=== PATIENT | female | born 1995 | race African-American/Black ===

== ENCOUNTER → 2019-11-19 | Outpatient (CLI) | payer OTHER ==
[2019-11-19 10:59] LABS: Basophils # (auto) 0.1 10 ^3/uL (0-0.2); Basophils % (auto) 0.7 % (0.0-2.0); Eosinophils # (auto) 0.2 10 ^3/uL (0-0.8); Eosinophils % (auto) 2.2 % (0.0-7.0); Hematocrit 40.7 % (36.0-46.0); Lymphocytes # (auto) 2.2 10 ^3/uL (0.4-5.4); Lymphocytes % (auto) 27.6 % (10.0-50.0); Mean Corpuscular Hgb Conc. 34.3 g/dL (32.0-36.0); Mean Corpuscular Volume 93.2 fL (80.0-100.0); Monocytes # (auto) 0.7 10 ^3/uL (0-1.3); Monocytes % (auto) 8.6 % (0.0-12.0); Neutrophils # (auto) 4.8 10 ^3/uL (1.6-8.6); Neutrophils % (auto) 60.9 % (37.0-80.0); Nucleated Red Blood Cells % 0.1 %; Platelet Count (auto) 264 10^3/uL (140-450); Red Blood Cells 4.37 10^6/uL (4.0-5.20); Red Cell Distribution Width 13.3 % (11.8-14.3); White Blood Cell 7.9 10^3/uL (4.4-10.8)
[2019-11-19 11:27] LABS: Amphetamine Screen, Urine NEGATIVE (NEGATIVE); Barbiturate Scree,Urine NEGATIVE (NEGATIVE); Benzodiazephine Screen, Urine NEGATIVE (NEGATIVE); Cannabinoid Screen, Urine NEGATIVE (NEGATIVE); Cocaine Screen, Urine NEGATIVE (NEGATIVE); Opiate Scree,Urine NEGATIVE (NEGATIVE); Phencyclidine Screen, Urine NEGATIVE (NEGATIVE)
[2019-11-20 04:06] LABS: RPR Non Reactive (Non Reactive)
== END | disposition home or self-care (01) ==
LOC: LAB 10:35
PROVIDERS: ATTEND Obstetrics & Gynecology
DX: Z34.80 Encounter for supervision of other normal pregnancy, unspecified trimester (principal); Z31.430 Encounter of female for testing for genetic disease carrier status for procreative management; Z72.51 High risk heterosexual behavior
CPT/HCPCS: 36415; 80307; 83036; 84112; 84144; 84702; 85025; 86592; 86703; 86762; 86850; 86900; 86901; 87086; 87340

== ENCOUNTER → 2019-12-25 | Outpatient (CLI) | payer OTHER | END | disposition home or self-care (01) | LOC: LAB 10:00 | PROVIDERS: ATTEND Obstetrics & Gynecology | DX: Z31.430 Encounter of female for testing for genetic disease carrier status for procreative management (principal); Z20.2 Contact with and (suspected) exposure to infections with a predominantly sexual mode of transmission; Z36.0 Encounter for antenatal screening for chromosomal anomalies; Z3A.16 16 weeks gestation of pregnancy | CPT/HCPCS: 81220 ==

== ENCOUNTER 2020-04-28 15:45 | Observation (INO) | payer OTHER ==
[~2020-04-28] VITALS: Ht 182.9 cm; Wt 93.0 kg
[2020-04-28] MEDS ORDERED: BETAMETHASONE ACET (6MG/ML) 5ML VIAL IM SCH (17:15)
[2020-04-28] MEDS: TERBUTALINE SULFATE 1 MG/ML 1ML VIAL SC SCH ×2 (17:32→18:31)
[2020-04-28 18:26] LABS: Basophils # (auto) 0 10 ^3/uL (0-0.2); Basophils % (auto) 0.3 % (0.0-2.0); Eosinophils # (auto) 0.1 10 ^3/uL (0-0.8); Eosinophils % (auto) 0.5 % (0.0-7.0); Hematocrit 34.5 % (36.0-46.0); Hemoglobin 11.6 g/dL (12.2-16.2); Lymphocytes # (auto) 2.6 10 ^3/uL (0.4-5.4); Lymphocytes % (auto) 26.9 % (10.0-50.0); Mean Corpuscular Hemoglobin 29.1 pg (28.0-32.0); Mean Corpuscular Hgb Conc. 33.5 g/dL (32.0-36.0); Mean Corpuscular Volume 86.6 fL (80.0-100.0); Monocytes % (auto) 10.1 % (0.0-12.0); Neutrophils # (auto) 6.1 10 ^3/uL (1.6-8.6); Neutrophils % (auto) 62.2 % (37.0-80.0); Platelet Count (auto) 226 10^3/uL (140-450); Red Blood Cells 3.98 10^6/uL (4.0-5.20); Red Cell Distribution Width 14.8 % (11.8-14.3); White Blood Cell 9.7 10^3/uL (4.4-10.8)
[2020-04-28 18:37] LABS: Urine Bacteria FEW /hpf (None Seen); Urine Blood Negative /uL (Negative); Urine Mucus FEW (None Seen); Urine Specific Gravity 1.032 (1.001-1.035); Urine WBC 1 /hpf (0 - 5)
[2020-04-28 18:38] LABS: Albumin 2.9 g/dL (3.4-5.0); Calcium 8.3 mg/dL (8.5-10.1); Potassium 3.3 mmol/L (3.5-5.1); Uric Acid 3.6 mg/dL (2.6-6.0)
[2020-04-28 18:40] LABS: INR 0.98 (0.9-1.15); Partial Thromboplastin Time 28.9 sec (23.0-31.2)
[2020-04-28 18:42] LABS: BUN/Creatinine Ratio 11.6; Bilirubin, Total 0.3 mg/dL (0.2-1.0); Total Protein 7.4 g/dL (6.4-8.2)
[2020-04-28 18:46] LABS: Protein, Urine 32.8 mg/dL (0.0-11.9)
[2020-04-28] MEDS ORDERED: NIFEdipine 10 MG CAP PO ONE (19:15)
[2020-04-29] MEDS ORDERED: NIF10C PO (17:51)
[2020-04-29] MEDS ORDERED: PREN-96 PO (17:51)
== END 2020-04-28 20:16 | disposition home or self-care (01) ==
LOC: LDRP 15:45
PROVIDERS: ADMIT Specialist; ATTEND Specialist
DX: O13.3 Gestational [pregnancy-induced] hypertension without significant proteinuria, third trimester (principal); Z3A.34 34 weeks gestation of pregnancy
CPT/HCPCS: 36415; 59025; 80053; 81001; 81002; 82570; 84156; 84550; 85025; 85610; 85730; 96372; G0378; J0702; J3105

== ENCOUNTER → 2020-04-28 | Outpatient (CLI) | payer OTHER ==
[~2020-04-28] MED LIST: NIF10C PO; PREN-96 PO
== END | disposition home or self-care (01) ==
LOC: LAB 15:24
PROVIDERS: ATTEND Obstetrics & Gynecology
DX: Z20.2 Contact with and (suspected) exposure to infections with a predominantly sexual mode of transmission (principal)
CPT/HCPCS: 86695; 86696

== ENCOUNTER 2020-04-29 16:16 | Observation (INO) | payer OTHER ==
[2020-04-29] MEDS ORDERED: BETAMETHASONE ACET (6MG/ML) 5ML VIAL IM ONE (16:45)
[2020-04-29] MEDS ORDERED: NIF10C PO (17:51)
[2020-04-29] MEDS ORDERED: PREN-96 PO (17:51)
== END 2020-04-29 17:45 | disposition home or self-care (01) ==
LOC: LDRP 16:16
PROVIDERS: ADMIT Specialist; ATTEND Specialist
DX: O13.3 Gestational [pregnancy-induced] hypertension without significant proteinuria, third trimester (principal); Z3A.34 34 weeks gestation of pregnancy
CPT/HCPCS: 59025; 81002; 96372; G0378; J0702

== ENCOUNTER 2020-05-02 11:52 | Observation (INO) | payer OTHER ==
[~2020-05-02] VITALS: Ht 182.9 cm; Wt 93.0 kg
[2020-05-02 13:44] LABS: Protein, Urine 17.8 mg/dL (0.0-11.9)
[2020-05-02 15:08] LABS: Albumin 2.9 g/dL (3.4-5.0); Potassium 3.7 mmol/L (3.5-5.1)
[2020-05-02 15:11] LABS: BUN/Creatinine Ratio 14.3; Bilirubin, Total 0.3 mg/dL (0.2-1.0); Total Protein 7.5 g/dL (6.4-8.2)
[2020-05-02 15:14] LABS: 24 Hr. Total Protein, Urine 391.6 mg/24 Hr (<149.1)
[2020-05-02 15:27] LABS: Creatinine Clearance, Urine 184.39 mL/min (75-115)
== END 2020-05-02 15:43 | disposition home or self-care (01) ==
LOC: LDRP 11:52
PROVIDERS: ADMIT Specialist; ATTEND Specialist
DX: O13.3 Gestational [pregnancy-induced] hypertension without significant proteinuria, third trimester (principal); Z3A.35 35 weeks gestation of pregnancy
CPT/HCPCS: 36415; 59025; 80053; 81002; 82575; 84156; G0378

== ENCOUNTER 2020-05-05 19:02 | Observation (INO) | payer OTHER ==
[~2020-05-05] VITALS: Ht 182.9 cm; Wt 93.0 kg
== END 2020-05-05 20:43 | disposition home or self-care (01) ==
LOC: LDRP 19:02
PROVIDERS: ADMIT Obstetrics & Gynecology; ATTEND Obstetrics & Gynecology
DX: O13.3 Gestational [pregnancy-induced] hypertension without significant proteinuria, third trimester (principal); Z3A.35 35 weeks gestation of pregnancy
CPT/HCPCS: 59025; 76818; 81002; G0378

== ENCOUNTER 2020-05-08 16:00 | Observation (INO) | payer OTHER | END 2020-05-08 17:24 | disposition home or self-care (01) | LOC: LDRP 16:00 | PROVIDERS: ADMIT Obstetrics & Gynecology; ATTEND Obstetrics & Gynecology | DX: O13.3 Gestational [pregnancy-induced] hypertension without significant proteinuria, third trimester (principal); Z3A.35 35 weeks gestation of pregnancy | CPT/HCPCS: 59025; 76818; 81002; G0378 ==

== ENCOUNTER 2020-05-12 18:52 | Observation (INO) | payer OTHER ==
[~2020-05-12] VITALS: Ht 30.5 cm; Wt 0.5 kg
[2020-05-12 20:19] LABS: Basophils # (auto) 0 10 ^3/uL (0-0.2); Basophils % (auto) 0.2 % (0.0-2.0); Eosinophils # (auto) 0.1 10 ^3/uL (0-0.8); Eosinophils % (auto) 0.7 % (0.0-7.0); Hematocrit 34.9 % (36.0-46.0); Hemoglobin 11.4 g/dL (12.2-16.2); Lymphocytes # (auto) 2.6 10 ^3/uL (0.4-5.4); Mean Corpuscular Hgb Conc. 32.7 g/dL (32.0-36.0); Mean Corpuscular Volume 85.5 fL (80.0-100.0); Monocytes # (auto) 1.3 10 ^3/uL (0-1.3); Monocytes % (auto) 11.8 % (0.0-12.0); Neutrophils # (auto) 7.1 10 ^3/uL (1.6-8.6); Neutrophils % (auto) 64.3 % (37.0-80.0); Nucleated Red Blood Cells % 0.1 %; Platelet Count (auto) 220 10^3/uL (140-450); Red Blood Cells 4.08 10^6/uL (4.0-5.20); Red Cell Distribution Width 15.1 % (11.8-14.3); White Blood Cell 11.1 10^3/uL (4.4-10.8)
[2020-05-12 20:26] LABS: Albumin 2.8 g/dL (3.4-5.0); Calcium 8.4 mg/dL (8.5-10.1); Potassium 4.8 mmol/L (3.5-5.1)
[2020-05-12 20:30] LABS: BUN/Creatinine Ratio 15.9; Bilirubin, Total 0.3 mg/dL (0.2-1.0); Total Protein 7.1 g/dL (6.4-8.2); Uric Acid 3.5 mg/dL (2.6-6.0)
[2020-05-12 20:35] LABS: INR 0.92 (0.9-1.15); Partial Thromboplastin Time 29.9 sec (23.0-31.2)
[2020-05-12] MEDS ORDERED: LABETALOL HCL 200 MG TAB PO ONE (20:45)
== END 2020-05-12 21:08 | disposition left against medical advice (07) ==
LOC: LDRP 18:52
PROVIDERS: ADMIT Obstetrics & Gynecology; ATTEND Obstetrics & Gynecology
DX: O13.3 Gestational [pregnancy-induced] hypertension without significant proteinuria, third trimester (principal); Z3A.36 36 weeks gestation of pregnancy
CPT/HCPCS: 59025; 76818; 80053; 81002; 84550; 85610; 85730; G0378

== ENCOUNTER 2020-05-16 19:02 | Observation (INO) | payer OTHER ==
[~2020-05-16] VITALS: Ht 182.9 cm; Wt 95.3 kg
[2020-05-16 20:34] LABS: 24 Hr. Total Protein, Urine 218.5 mg/24 Hr (<149.1)
== END 2020-05-16 21:46 | disposition home or self-care (01) ==
LOC: LDRP 19:02
PROVIDERS: ADMIT Obstetrics & Gynecology; ATTEND Obstetrics & Gynecology
DX: O13.3 Gestational [pregnancy-induced] hypertension without significant proteinuria, third trimester (principal); Z3A.37 37 weeks gestation of pregnancy
CPT/HCPCS: 59025; 76818; 81002; 82570; 84156; G0378

== ENCOUNTER 2020-05-18 14:18 | Observation (INO) | payer OTHER ==
[~2020-05-18] VITALS: Ht 193 cm; Wt 93.4 kg
--- NOTE | 2020-05-18 15:50 | NUR ---
UA collected before discharge. UA results within normal limits. Protein negative, ketones neg, glucose neg, pH 7 specific gravity 1.010, nitrates neg, leuk negative.
[2020-05-18] MEDS ORDERED: LABETALOL HCL 200 MG TAB PO ONE (16:00)
[2020-05-18] MEDS ORDERED: LABETALOL HCL 200 MG TAB ONE (16:02)
== END 2020-05-18 17:04 | disposition home or self-care (01) ==
LOC: LDRP 14:18
PROVIDERS: ADMIT Obstetrics & Gynecology; ATTEND Obstetrics & Gynecology
DX: O14.93 Unspecified pre-eclampsia, third trimester (principal); Z3A.37 37 weeks gestation of pregnancy
CPT/HCPCS: 59025; 76818; 81002; G0378

== ENCOUNTER 2020-05-21 19:31 | Observation (INO) | payer OTHER ==
[2020-05-21] MEDS ORDERED: LABETALOL HCL 200 MG TAB PO ONE (20:15)
[2020-05-21] MEDS ORDERED: LABE200T6 GT (23:14)
[2020-05-21] MEDS ORDERED: ACYC1CAP23 PO (23:14)
== END 2020-05-21 21:15 | disposition home or self-care (01) ==
LOC: LDRP 19:31
PROVIDERS: ADMIT Specialist; ATTEND Specialist
DX: O13.3 Gestational [pregnancy-induced] hypertension without significant proteinuria, third trimester (principal); O14.90 Unspecified pre-eclampsia, unspecified trimester; Z3A.37 37 weeks gestation of pregnancy
CPT/HCPCS: 59025; 76818; 81002; G0378

== ENCOUNTER 2020-05-25 19:10 | Observation (INO) | payer OTHER ==
[~2020-05-25] VITALS: Ht 182.9 cm; Wt 95.3 kg
[~2020-05-25 19:10] MED LIST changes: +ACYC1CAP23 PO; +LABE200T6 GT; -NIF10C PO
[2020-05-25 22:05] LABS: 24 Hr. Total Protein, Urine 358.5 mg/24 Hr (<149.1); Protein, Urine 23.9 mg/dL (0.0-11.9)
[2020-05-25 22:09] LABS: Protein, Urine 24.1 mg/dL (0.0-11.9)
== END 2020-05-25 21:45 | disposition home or self-care (01) ==
LOC: LDRP 19:10
PROVIDERS: ADMIT Obstetrics & Gynecology; ATTEND Obstetrics & Gynecology
DX: O14.90 Unspecified pre-eclampsia, unspecified trimester (principal); Z3A.38 38 weeks gestation of pregnancy
CPT/HCPCS: 59025; 76818; 81002; 82570; 84156; G0378

== ENCOUNTER 2020-05-28 19:36 | Observation (INO) | payer OTHER | END 2020-05-28 21:14 | disposition home or self-care (01) | LOC: LDRP 19:36 → UNDOADMOB 19:36 → UNDODISOB 21:14 | PROVIDERS: ADMIT Specialist; ATTEND Specialist | DX: O13.3 Gestational [pregnancy-induced] hypertension without significant proteinuria, third trimester (principal); Z20.828 Contact with and (suspected) exposure to other viral communicable diseases; Z3A.38 38 weeks gestation of pregnancy | CPT/HCPCS: 59025; 76818; 81002; G0378; U0003 ==

== ENCOUNTER 2020-05-31 19:27 | Inpatient (IN) | payer OTHER ==
[~2020-05-31] VITALS: Ht 182.9 cm; Wt 95.7 kg
[2020-05-31] MEDS ORDERED: LIDOCAINE 2%HCL (LOCAL ANESTH.) INJ 20ML MDV IJ ONE (21:00)
[2020-05-31] MEDS ORDERED: WITCH HAZEL-GLYCERIN PAD TOP PRN (21:00)
[2020-05-31] MEDS ORDERED: PROMETHAZINE HCL 25 MG/ML 1ML IM PRN (21:00)
[2020-05-31] MEDS ORDERED: DERMOPLAST 60ML BOTTLE TOP PRN (21:00)
[2020-05-31] MEDS ORDERED: PHISODERM TOP SOLN 240ML BTL TOP PRN (21:00)
[2020-05-31] MEDS ORDERED: PENICILLIN G POT 5MIL/D5 50ML 50 ML IV ONE (21:30)
[2020-05-31 21:35] LABS: Basophils # (auto) 0 10 ^3/uL (0-0.2); Basophils % (auto) 0.4 % (0.0-2.0); Eosinophils # (auto) 0.1 10 ^3/uL (0-0.8); Eosinophils % (auto) 0.5 % (0.0-7.0); Hemoglobin 10.6 g/dL (12.2-16.2); Lymphocytes # (auto) 2.3 10 ^3/uL (0.4-5.4); Lymphocytes % (auto) 18.8 % (10.0-50.0); Mean Corpuscular Hgb Conc. 32.2 g/dL (32.0-36.0); Monocytes # (auto) 1.4 10 ^3/uL (0-1.3); Monocytes % (auto) 11.9 % (0.0-12.0); Neutrophils # (auto) 8.2 10 ^3/uL (1.6-8.6); Neutrophils % (auto) 68.4 % (37.0-80.0); Platelet Count (auto) 249 10^3/uL (140-450); Red Blood Cells 3.93 10^6/uL (4.0-5.20); Red Cell Distribution Width 16.2 % (11.8-14.3)
[2020-05-31 21:38] LABS: Urine Bacteria FEW /hpf (None Seen); Urine Blood Negative /uL (Negative); Urine Mucus FEW (None Seen); Urine Specific Gravity 1.008 (1.001-1.035); Urine WBC <1 /hpf (0 - 5)
[2020-05-31 21:49] LABS: INR 0.92 (0.9-1.15); Partial Thromboplastin Time 29.9 sec (23.0-31.2)
[2020-05-31] MEDS: LACTATED RINGER'S 1,000 ML IV SCH (21:50)
[2020-05-31] MEDS: miSOPROStol 50 MCG per PRE-CUT 1/2 TAB PO PRN (21:54)
[2020-05-31 22:02] LABS: Alcohol, Urine < 3.0 mg/dL (0-10); Amphetamine Screen, Urine NEGATIVE (NEGATIVE); Barbiturate Scree,Urine NEGATIVE (NEGATIVE); Benzodiazephine Screen, Urine NEGATIVE (NEGATIVE); Cannabinoid Screen, Urine NEGATIVE (NEGATIVE); Cocaine Screen, Urine NEGATIVE (NEGATIVE); Opiate Scree,Urine NEGATIVE (NEGATIVE); Phencyclidine Screen, Urine NEGATIVE (NEGATIVE)
[2020-05-31 22:22] LABS: Albumin 2.7 g/dL (3.4-5.0); Calcium 8.5 mg/dL (8.5-10.1); Potassium 3.8 mmol/L (3.5-5.1)
[2020-05-31 22:24] LABS: BUN/Creatinine Ratio 15.1; Bilirubin, Total 0.2 mg/dL (0.2-1.0)
[2020-06-01] MEDS: miSOPROStol 50 MCG per PRE-CUT 1/2 TAB PO PRN ×3 (02:00→12:28)
[2020-06-01] MEDS ORDERED: PENICILLIN G POT 5MILLION UNIT VIAL ONE (02:03)
[2020-06-01] MEDS: PENICILLIN G POTASSIUM 2,500,000 UNITS in D5W 5% 50 ML IV SCH ×5 (02:11→17:28)
[2020-06-01] MEDS: LACTATED RINGER'S 1,000 ML IV SCH ×3 (05:54→23:00)
[2020-06-01] MEDS: LABETALOL HCL 200 MG TAB PO SCH ×3 (07:41→21:43)
[2020-06-01] MEDS ORDERED: LACT. RINGERS/OXYTOCIN 20UNITS 1,000 ML IV PRN (08:00)
--- NOTE | 2020-06-01 10:41 | NUR ---
SS consult regarding surrogate . Pt is an alert and oriented female that reside with her 5 yo son. Pt states her mother and boyfriend are available for assistance and help upon discharge. Pt states that she agrees with the surrogate adoption and has been working with an agency lead generation representative/oxygen equipment preparer and the parents throughout this process. Pt states the parents are still in [place] due to the mother not obtaining her passport in time. Agency and parents have arranged for 2 nannies/caregivers to have baby released to upon discharge and care for child until the parents arrive. Agency paperwork from Court reviewed and appears in order. POA from parents assigning the 2 nannies authority over the baby for discharge reviewed as well. Nannies are not present at this time but upon arrival will need to provide identification to complete process for discharging baby. No further SS concerns/ needs at this time.
[2020-06-01] MEDS ORDERED: LACT. RINGERS/OXYTOCIN 20UNITS 1,000 ML IV SCH (17:00)
[2020-06-02] MEDS: BUTORPHANOL TARTRATE 2 MG/1 ML VIAL IV PRN ×2 (00:52→04:04)
[2020-06-02] MEDS: PENICILLIN G POTASSIUM 2,500,000 UNITS in D5W 5% 50 ML IV SCH ×2 (01:52→05:46)
[2020-06-02 05:06] LABS: RPR Non Reactive (Non Reactive)
[2020-06-02] MEDS ORDERED: LIDOCAINE 2%HCL (LOCAL ANESTH.) INJ 20ML MDV ONE (06:19)
[2020-06-02] MEDS ORDERED: IBUPROFEN 600 MG TAB PO PRN (08:15)
[2020-06-02] MEDS: ACETAMINOPHEN 325 MG TAB PO PRN ×2 (09:05→17:48)
[2020-06-02 09:10] VITALS: BP 117/77
--- NOTE | 2020-06-02 09:10 | NUR ---
Ambulation: Patient OOB with standby assistance by RN. Patient ambulated to bathroom with steady gait. Patient able to void 500ml without difficulty. [facility]icare teaching provided with returned demonstration by patient. Clean gown provided and bed linen changed. Patient ambulated back to bed with steady gait and no distress noted.
[2020-06-02] MEDS: LABETALOL HCL 200 MG TAB PO SCH (09:33)
--- NOTE | 2020-06-02 10:25 | NUR ---
report received from chuck negrete rn
[2020-06-02 10:30] VITALS: BP 93/54
[2020-06-02 15:47] VITALS: BP 95/50
--- NOTE | 2020-06-02 16:36 | NUR ---
CALLED DR. TREJO AND READ BLOOD PRESSURES TO HIM . PER DR. TREJO HOLD MEDICATION LABETALOL. ORDERS CARRIED OUT.
[2020-06-02 18:55] VITALS: BP 111/75
[2020-06-02 22:55] VITALS: BP 126/79
[2020-06-03 03:30] VITALS: BP 109/75
[2020-06-03] MEDS: ACETAMINOPHEN 325 MG TAB PO PRN (04:24)
--- NOTE | 2020-06-03 04:25 | NUR ---
IV removal IV DC'd with sterile technique, catheter fully intact. Pressure dressing applied to site. Patient tolerated procedure well.
[2020-06-03 06:24] VITALS: BP 115/70
[2020-06-03 06:31] VITALS: BP 115/70
[2020-06-03 06:59] VITALS: BP 115/70
--- NOTE | 2020-06-03 07:10 | NUR ---
Discharge: Discharge instructions given as ordered. Pt encouraged to follow up with [facility] as instructed. All questions and concerns addressed. Patient verbalized understanding. Medication reconciliation completed and copy given to patient.
--- NOTE | 2020-06-03 09:53 | NUR ---
Discharge: Patient taken to vehicle ambulatory with all personal belongings, accompanied by staff and family member. No distress noted at time of departure, no adverse changes in status since initial assessment.
== END 2020-06-03 09:53 | disposition home or self-care (01) | DRG 807 ==
LOC: LDRP 19:27
PROVIDERS: ADMIT Obstetrics & Gynecology; ATTEND Obstetrics & Gynecology
PROC: 10E0XZZ Delivery of Products of Conception, External Approach (ICD-10-PCS; principal; 2020-06-02)
PROC: 3E0P7VZ Introduction of Hormone into Female Reproductive, Via Natural or Artificial Opening (ICD-10-PCS; 2020-06-02)
PROC: 3E033VJ Introduction of Other Hormone into Peripheral Vein, Percutaneous Approach (ICD-10-PCS; 2020-06-02)
DX: O69.81X0 Labor and delivery complicated by cord around neck, without compression, not applicable or unspecified (principal); Z37.0 Single live birth; O13.4 Gestational [pregnancy-induced] hypertension without significant proteinuria, complicating childbirth; Z3A.39 39 weeks gestation of pregnancy
CPT/HCPCS: 36415; 59025; 59409; 80053; 80307; 81001; 81002; 84550; 85025; 85610; 85730; 86592; 86850; 86900; 86901; 96360; 96361; 96365; 96366; G0378; J2540; J2590; J7060